=== PATIENT | male | born 1945 | race African-American/Black ===

== ENCOUNTER 2017-04-16 13:28 | Emergency (ER) | payer MEDICARE, MEDICAID ==
[~2017-04-16] VITALS: Ht 175.3 cm; Wt 91.0 kg
[~2017-04-16 13:28] MED LIST: ALLO300T2 PO; FLUT1DIS3 ORI; RIVA10TA PO; TIOT18CA3 ORI
[2017-04-16 14:56] LABS: BASOPHILS % 0.5 % (0.0-2.0); EOSINOPHILS % 5.1 % (0.0-5.0); HEMATOCRIT. 39.6 % (42.0-52.0); HEMOGLOBIN. 13.4 g/dL (14.0-18.0); MEAN CORPUSCULAR HEMOGLOBIN 26.5 pg (28.0-32.0); MEAN CORPUSCULAR VOLUME 78.4 fL (80.0-94.0); MEAN PLATELET VOLUME 8.5 fl (7.4-10.4); MONOCYTES % 6.6 % (2.0-8.0); NEUTROPHILS % 51.8 % (40.0-76.0); PLATELET 214 x1000/uL (130-400); RED BLOOD CELL COUNT 5.05 mill/uL (4.7-6.1); RED CELL DISTRIBUTION WIDTH 16.1 % (11.6-14.6)
[2017-04-16 14:58] LABS: CHLORIDE 108 mEq/L (98-107)
[2017-04-16 15:02] LABS: CARBON DIOXIDE 22 mEq/L (21-32)
[2017-04-16 16:16] VITALS: BP 158/89
== END 2017-04-16 16:53 | disposition home or self-care (01) ==
LOC: ER 16:47
DX: M54.12 Radiculopathy, cervical region (principal); M19.012 Primary osteoarthritis, left shoulder; M19.011 Primary osteoarthritis, right shoulder; R53.1 Weakness; M10.9 Gout, unspecified; I11.9 Hypertensive heart disease without heart failure; I51.9 Heart disease, unspecified; Z79.01 Long term (current) use of anticoagulants; Z95.820 Peripheral vascular angioplasty status with implants and grafts; Z86.718 Personal history of other venous thrombosis and embolism; Z98.890 Other specified postprocedural states
CPT/HCPCS: 36415; 72125; 73030; 80048; 85025; 99285

== ENCOUNTER 2017-07-17 07:57 | Emergency (ER) | payer MEDICARE, MEDICAID ==
[~2017-07-17] VITALS: Ht 175.3 cm; Wt 91.0 kg
[2017-07-17] MEDS ORDERED: KETOROLAC 60MG/2ML VIAL IM ONE (08:45)
[2017-07-17 10:15] VITALS: BP 161/96
== END 2017-07-17 12:36 | disposition home or self-care (01) ==
LOC: ER 07:57
DX: S32.2XXA Fracture of coccyx, initial encounter for closed fracture (principal); Y93.01 Activity, walking, marching and hiking; Y92.89 Other specified places as the place of occurrence of the external cause; I10 Essential (primary) hypertension; R20.0 Anesthesia of skin; M51.37 Other intervertebral disc degeneration, lumbosacral region; J45.909 Unspecified asthma, uncomplicated; M10.9 Gout, unspecified; F17.210 Nicotine dependence, cigarettes, uncomplicated; Z98.890 Other specified postprocedural states; Z86.718 Personal history of other venous thrombosis and embolism; Z86.711 Personal history of pulmonary embolism; M51.36 Other intervertebral disc degeneration, lumbar region; W01.0XXA Fall on same level from slipping, tripping and stumbling without subsequent striking against object, initial encounter; J44.9 Chronic obstructive pulmonary disease, unspecified; Z79.01 Long term (current) use of anticoagulants
CPT/HCPCS: 72100; 72220; 96372; 99284; J1885

== ENCOUNTER 2017-09-12 09:28 | Emergency (ER) | payer MEDICARE, MEDICAID ==
[~2017-09-12] VITALS: Ht 175.3 cm; Wt 88.0 kg
[2017-09-12] MEDS ORDERED: IBUPROFEN 600MG TABLET PO ONE (10:15)
[2017-09-12 10:50] LABS: BASOPHILS % 0.7 % (0.0-2.0); EOSINOPHILS % 5.9 % (0.0-5.0); HEMATOCRIT. 43.1 % (42.0-52.0); HEMOGLOBIN. 14.2 g/dL (14.0-18.0); LYMPHOCYTES % 29.9 % (20.0-50.0); MEAN CORPUSCULAR HEMOGLOBIN 26.5 pg (28.0-32.0); MEAN CORPUSCULAR VOLUME 80.4 fL (80.0-94.0); MEAN PLATELET VOLUME 9.2 fl (7.4-10.4); MONOCYTES % 6.1 % (2.0-8.0); NEUTROPHILS % 57.4 % (40.0-76.0); PLATELET 251 x1000/uL (130-400); RED BLOOD CELL COUNT 5.36 mill/uL (4.7-6.1); RED CELL DISTRIBUTION WIDTH 16.8 % (11.6-14.6)
[2017-09-12 10:54] LABS: CHLORIDE 108 mEq/L (98-107)
[2017-09-12 11:02] LABS: CARBON DIOXIDE 28 mEq/L (21-32); CREATINE KINASE 138 IU/L (39-308)
[2017-09-12 11:14] VITALS: BP 183/96
== END 2017-09-12 11:36 | disposition home or self-care (01) ==
LOC: ER 09:28
DX: G56.31 Lesion of radial nerve, right upper limb (principal); J44.9 Chronic obstructive pulmonary disease, unspecified; J45.909 Unspecified asthma, uncomplicated; F17.210 Nicotine dependence, cigarettes, uncomplicated; Z86.718 Personal history of other venous thrombosis and embolism; Z79.01 Long term (current) use of anticoagulants; I11.9 Hypertensive heart disease without heart failure
CPT/HCPCS: 29105; 36415; 71010; 73030; 80053; 82550; 85025; 99285; A4565

== ENCOUNTER 2019-06-20 12:43 | Emergency (ER) | payer MEDICARE, MEDICAID ==
[~2019-06-20] VITALS: Ht 175.3 cm; Wt 91.0 kg
[2019-06-20 14:40] LABS: BASOPHILS % 0.5 % (0.0-2.0); EOSINOPHILS % 1.3 % (0.0-5.0); HEMOGLOBIN. 15.5 g/dL (14.0-18.0); LYMPHOCYTES % 31.6 % (20.0-50.0); MEAN CORPUSCULAR HEMOGLOBIN 26.6 pg (28.0-32.0); MEAN PLATELET VOLUME 10.4 fl (7.4-10.4); MONOCYTES % 6.8 % (2.0-8.0); NEUTROPHILS % 59.8 % (40.0-76.0); PLATELET 312 x1000/uL (130-400); RED BLOOD CELL COUNT 5.82 mill/uL (4.7-6.1); RED CELL DISTRIBUTION WIDTH 17.1 % (11.6-14.6)
[2019-06-20 14:44] LABS: CHLORIDE 109 mEq/L (98-107)
[2019-06-20 16:32] LABS: *AMPHETAMINES SCREEN URINE NEGATIVE (NEGATIVE); CANNABINOID URINE SCREEN NEGATIVE (NEGATIVE); METHADONE URINE SCREEN NEGATIVE (NEGATIVE); OPIATES URINE SCREEN NEGATIVE (NEGATIVE); PHENCYCLIDINE URINE SCREEN NEGATIVE (NEGATIVE)
[2019-06-20 16:33] LABS: *BARBITURATES SCREEN URINE NEGATIVE (NEGATIVE); *BENZODIAZEPINES SCREEN URINE NEGATIVE (NEGATIVE); *COCAINE SCREEN URINE NEGATIVE (NEGATIVE)
[2019-06-20] MEDS ORDERED: IOHEXOL-350 100 ML BOTTLE ONE (19:39)
[2019-06-20 19:52] VITALS: BP 171/92
== END 2019-06-20 19:52 | disposition home or self-care (01) ==
LOC: ER 12:43
DX: R07.9 Chest pain, unspecified (principal); J44.9 Chronic obstructive pulmonary disease, unspecified; F17.290 Nicotine dependence, other tobacco product, uncomplicated; Z86.711 Personal history of pulmonary embolism; Z86.718 Personal history of other venous thrombosis and embolism; Z98.890 Other specified postprocedural states
CPT/HCPCS: 36415; 71045; 71275; 80053; 80305; 83880; 84484; 85025; 85379; 93005; 99284; Q9967